=== PATIENT | female | born 1995 | race Caucasian/White ===

== ENCOUNTER → 2017-11-17 15:32 | Outpatient (CLI) | payer OTHER, SELFPAY ==
[2017-11-24 15:37] LABS: HPV Reflexed? NOT INDICATED
== END ==
PROVIDERS: Visit Provider Nurse Practitioner Women's Health
DX: Z12.4 Encounter for screening for malignant neoplasm of cervix (principal)
CPT/HCPCS: 88175; G0145

== ENCOUNTER → 2018-11-18 | Outpatient (CLI) | payer OTHER, SELFPAY ==
--- NOTE | 2018-11-18 10:30 | SKTAG_PTH ---
PATIENT: CHHAYA KENNEDY LOC: [facility] U#:[id number] AGE/SX: 23/ ROOM: RE11/18/[address]: ALDEN Pastrana : 1995 BED: DIS: 11/18/2018 SPEC #: [id number] RECD: 11/18/18 12:07 STATUS: ALLAN LETHA #: [id number] RODRI: 11/18/18 10:[address]: Sylvia Lorenzo NP DEPT: SURGICAL PATHOLOGY RECD BY: Susi Montoya Tissues: Skin of buttock, NOS Procedures: Surgery Specimen Level IV HEADER OPERATION: Skin tag removal PRE-OP DIAGNOSIS: 6 mm skin tag TISSUE SUBMITTED: 6 mm skin tag inner right buttocks near rectum MICROSCOPIC DIAGNOSIS Skin tag, inner right buttock, biopsy: Fibroepithelial polyp, mildly inflamed. AM:bety 11/19/18 MICROSCOPIC DESCRIPTION Slides are reviewed. GROSS DESCRIPTION Received is one container labeled with the patient's name and not further designated. The specimen consists of a polypoid piece of li-white skin measuring 0.6 x 0.5 x 0.3 cm. The specimen is inked, bisected and submitted entirely in one cassette. / SJ:bety 11/18/18 TC:5 CPT: 88567
[2018-11-18 10:45] VITALS: BMI 34.7
== END | disposition home or self-care (01) ==
LOC: LABSPEC 14:48
PROVIDERS: Referring Provider Nurse Practitioner Women's Health; Visit Provider Nurse Practitioner Women's Health
DX: L91.8 Other hypertrophic disorders of the skin (principal)
CPT/HCPCS: 88304; 88305

== ENCOUNTER → 2019-10-28 13:21 | Outpatient (CLI) | payer OTHER, SELFPAY ==
[2019-10-12 14:08] VITALS: BMI 34.7
--- NOTE | 2019-10-28 13:26 | US_ITS ---
STUDY: ULTRASOUND BREAST - LEFT REASON FOR EXAM: Female, 24 years old. Lump TECHNIQUE: Axial and longitudinal images of the LEFT breast were performed with a high resolution ultrasound transducer. # OF IMAGES: 43 COMPARISON: None. FINDINGS: LEFT Breast: Sonographic evaluation of the left breast shows normal dense fibroglandular tissue. There is no suspicious shadowing solid lesion, architectural distortion, or shadowing calcifications. There are mildly dilated ducts in the region of concern that are clearly benign. US/Breast Complete Unilateral IMPRESSION: No suspicious sonographic abnormality, mildly dilated retroareolar ducts in the area of concern. No specific follow-up is needed ASSESSMENT CATEGORY: BIRADS Category 1: Negative. A letter regarding these results will be sent to the patient by the facility within 30 days. Electronically Signed: James Lee MD at 14:12 EDT , Service support ,
== END ==
PROVIDERS: Referring Provider Nurse Practitioner Women's Health; Visit Provider Nurse Practitioner Women's Health
DX: N63.20 Unspecified lump in the left breast, unspecified quadrant (principal)
CPT/HCPCS: 76641

== ENCOUNTER → 2020-09-12 07:51 | Outpatient (CLI) | payer OTHER, SELFPAY ==
[2020-08-29 14:07] VITALS: BMI 34.7
[2020-09-12 08:34] LABS: Hemoglobin A1c 4.8 % (3.8-5.6)
[2020-09-12 08:49] LABS: Prolactin 8.5 ng/mL
== END ==
LOC: PAVLAB 07:56
PROVIDERS: Referring Provider Nurse Practitioner Women's Health; Visit Provider Nurse Practitioner Women's Health
DX: N92.6 Irregular menstruation, unspecified (principal); N97.0 Female infertility associated with anovulation
CPT/HCPCS: 36415; 82627; 83036; 84146; 84402; 82626

== ENCOUNTER → 2020-09-30 12:55 | Outpatient (CLI) | payer OTHER, SELFPAY ==
[2020-08-29 14:07] VITALS: BMI 34.7
== END ==
LOC: LAB 13:03
PROVIDERS: Visit Provider Nurse Practitioner Women's Health
DX: N92.6 Irregular menstruation, unspecified (principal)
CPT/HCPCS: 36415; 84144

== ENCOUNTER → 2021-02-18 16:34 | Outpatient (CLI) | payer OTHER, SELFPAY ==
[2021-02-18 17:26] LABS: Absolute Lymphocyte Count 3.26 X10^3/uL (0.83-4.51); Absolute Neutrophil Count 7.1 X10^3/uL (2.0-7.7); Basophil# 0.03 X10^3/uL; Basophil% 0.3 % (0-1); Eosinophil# 0.12 X10^3/uL; Eosinophils% 1.1 % (0-5); Hematocrit 38.9 % (37-47); Hemoglobin 13.2 g/dL (12.0-15.0); Lymphocyte # 3.26 X10^3/ul (0.83-4.51); Lymphocyte % 29.2 % (19-41); Mean Corp Hgb Conc 33.9 g/dL (32-36); Mean Corpuscular Hgb 30.8 pg (27.0-32.0); Mean Corpuscular Volume 90.7 fL (81-99); Monocyte# 0.63 X10^3/uL; Monocyte% 5.6 % (0-10); NRBC Flagged by Analyzer 0 % (0-5); Neutrophil # 7.08 X10^3/uL (2.7-7.7); Neutrophil % 63.4 % (47-70); Platelet Count 247 K/mm3 (150-450); RBC Distribution Width CV 14.1 % (11.6-14.6); RBC Distribution Width SD 46.7 fl (35.1-43.9); Red Blood Count 4.29 M/mm3 (4.2-5.4); White Blood Count 11.2 K/mm3 (4.4-11.0)
[2021-02-18 18:03] LABS: Amphetamine Urine VISTA NEGATIVE (<1000 ng/mL); Barbiturate Urine VISTA NEGATIVE (< 200 ng/mL); Benzodiazepine Urine VISTA NEGATIVE (< 200 ng/mL); Cocaine Urine VISTA NEGATIVE (< 300 ng/mL); Ecstacy Urine VISTA NEGATIVE (< 500 ng/mL); Methadone Urine VISTA NEGATIVE (< 300 ng/mL); PCP Urine VISTA NEGATIVE (< 25 ng/mL); THC Urine VISTA NEGATIVE (< 50 ng/mL); Vista UDS pH Range 6
[2021-02-19 12:03] LABS: HIV - WCH Non-Reactive (Nonreactive); Hepatitis B Surface Antigen Non-Reactive (Nonreactive); Hepatitis C Antibody Non-Reactive (Nonreactive); Progesterone Level 8.75 ng/mL (See Comment); Rubella IgG Reactive (Nonreactive); Syphilis Antibodies Non-reactive
[2021-02-27 15:35] LABS: HPV APTIMA, High Risk Negative; HPV Reflexed? YES, CHARGE PATIENT
== END ==
PROVIDERS: Referring Provider Obstetrics & Gynecology; Visit Provider Obstetrics & Gynecology
DX: Z34.90 Encounter for supervision of normal pregnancy, unspecified, unspecified trimester (principal)
CPT/HCPCS: 36415; 80307; 84144; 84702; 85025; 86703; 86762; 86780; 86803; 86850; 86870; 86900; 86901; 87086; 87340; 87624; 88175; G0145

== ENCOUNTER → 2021-02-20 10:37 | Outpatient (CLI) | payer OTHER, SELFPAY ==
--- NOTE | 2021-02-20 10:49 | US_ITS ---
STUDY: FIRST TRIMESTER OBSTETRICAL ULTRASOUND REASON FOR EXAM: Female, 25 years old threatened LMP: 12/20/2020 TECHNIQUE: Transvaginal TECHNICAL QUALITY: Adequate. PRIOR ULTRASOUND: None. FINDINGS: There is visualization of a single gestational sac in a normal intrauterine position. The mean sac diameter (MSD) measures 2.35 cm, indicating an estimated gestational age (EGA) of 7 weeks, 2 days. The gestational sac shape is teardrop in appearance. There is no demonstrated yolk sac. The placenta is non-visualized. There is no demonstrated embryo ( pole). The estimated gestation age (EGA) by LMP is 8 weeks, 6 days. The estimated date of delivery (PRASHANT) by LMP is 09/26/2021. The estimated gestation age (EGA) by US is 7 weeks, 2 days. The estimated date of delivery (PRASHANT) by US is 10/07/2021. The uterus measures 9.4 cm x 6.2 cm by 4.7 cm. There is evidence of a 1.7 cm x 1.7 cm x 1.5 cm uterine fibroid. The cervix is closed. The right ovary measures 4.7 cm x 2.3 cm x 2.6 cm. There is no right ovarian cyst. There is no visualized right adnexal mass or complex lesion. The left ovary measures 4.1 cm x 2.8 cm x 2.7 cm. There is no left ovarian cyst. There is no visualized left adnexal mass or complex lesion. There is no fluid in the cul de sac. US/Init OB < 14Wks US IMPRESSION: Teardrop shaped intrauterine gestational sac with a gestational age of 7 weeks and 2 days. No pole or cardiac activity is seen at this time. Electronically Signed: Gaurav Leos MD at 11:47 EDT , Service support ,
== END ==
PROVIDERS: Referring Provider Obstetrics & Gynecology; Visit Provider Obstetrics & Gynecology
DX: O20.0 Threatened abortion (principal); Z3A.00 Weeks of gestation of pregnancy not specified
CPT/HCPCS: 36415; 76801; 84702

== ENCOUNTER 2021-02-21 10:49 | Day surgery (SDC) | payer OTHER, SELFPAY ==
[2021-02-21] VITALS (8 sets, daily range): BP systolic 96–111; BP diastolic 57–82; PULSE 73–92; RESP 16–17; TEMP 36.1–36.9; O2SAT 95–100; BMI 36.2
[2021-02-21] MEDS: Lactated Ringers 1,000 ML 100 ML IV ×2 (12:14→14:05)
[2021-02-21] MEDS: Doxycycline 100 MG CAPSULE PO (12:14)
[2021-02-21 12:40] LABS: Hematocrit 38.1 % (37-47); Hemoglobin 13.2 g/dL (12.0-15.0); Mean Corp Hgb Conc 34.6 g/dL (32-36); Mean Corpuscular Hgb 31.2 pg (27.0-32.0); Mean Corpuscular Volume 90.1 fL (81-99); Mean Platelet Vol. 10.9 fl (6.2-12.0); Platelet Count 222 K/mm3 (150-450); RBC Distribution Width CV 14.1 % (11.6-14.6); RBC Distribution Width SD 45.8 fl (35.1-43.9); Red Blood Count 4.23 M/mm3 (4.2-5.4); White Blood Count 8.6 K/mm3 (4.4-11.0)
--- NOTE | 2021-02-21 13:05 | HP.PCM_ITS ---
History and Physical Date of Admission: 02/21/21 Vital Signs 02/20/21 12:13 Weight: 199 lb BP 90/60 Intake Visit Reasons: possible SAB u/s at 1100 Allergies sulfamethoxazole [From Bactrim] Allergy (Mild, Verified 02/21/21 11:33) hives trimethoprim [From Bactrim] Allergy (Mild, Verified 02/21/21 11:33) hives [facility] Medical History (Updated 02/21/21 @ 13:[address] Radha Ornelas MD) Acid reflux Anxiety Irregular menses Surgical History H/O oral surgery S/P hernia repair Family History Grandmother Breast cancer Diabetes Social History household members: spouse current occupational status: employed current occupation: [employer] pets and animals: Yes Smoking Status: Never smoker second hand exposure: No alcohol intake: current details: occasionally substance use type: does not use caffeine: Yes what type of physical activity do you participate in: walking, bicycling and yoga frequency: 3-4 times per week seatbelt use: always do you feel safe at home: Yes additional social history: - Bill HPI possible SAB u/s at 1100 Details: CHHAYA KENNEDY is a 25 year old who presents for fu possible miscarriage. us today confirms empty gestational sac with missed ab 7 weeks. she denies any bleeding or crmaping no fevers. Pregancy History 2 Elective abortions Hx Para Spontaneous abortions Hx # Term Pregnancies Ectopic pregnancies Hx # Pregnancies Multiple births # of living children ROS Const Constitutional: Reports as per HPI; Denies fever(s) ENT ENT: Reports system reviewed and no additional complaints, except as documented Cardio Card: Reports system reviewed and no additional complaints, except as documented Resp Resp: Reports system reviewed and no additional complaints, except as documented GI GI: Reports as per HPI : Reports as per HPI Musc Musc: Reports system reviewed and no additional complaints, except as documented Skin Skin/Breast: Reports system reviewed and no additional complaints, except as documented Neuro Neuro: Reports system reviewed and no additional complaints, except as documented Endo Endo: Reports system reviewed and no additional complaints, except as documented Exam Const General: healthy appearing, comfortable and no acute distress [facility] Head: normal to inspection and normocephalic Neck Neck: no lymphadenopathy noted Thyroid: thyroid normal Chest Chest palpation & inspection: normal inspection of the chest Resp Effort & Inspection: normal respiratory effort Cardio Rate: regular rate Rhythm: regular rhythm GI Inspection: normal to inspection Palpation: soft and nontender Skin General: no rashes or lesions noted Neuro General: no focal motor deficits Extrem General: normal to inspection and no pedal edema Psych Appearance: grossly normal Coding Level of Care Code Off vis,est,level 4 Diagnoses Missed O02.1 History of recurrent miscarriages N96 Assessment and Plan Assessment and Plan (1) Missed : Status: Acute Comment: discussed options for medical and surgical management, patient initially chose medical but now requests surgical Medications: New: oxycodone-acetaminophen 5-325 mg (Percocet) 1 TAB PO Q6H 7 days 14 tabs 0RF Plan - Dr. Radha Ornelas MD: After discussing the patient's diagnosis and treatment plan options, patient wishes to proceed with surgical management. I have discussed with the patient the risks, benefits, and alternatives of the procedure which include but are not limited to risks of anesthesia, bleeding, infection, possible damage to bowel, bladder, or surrounding vasculature which could lead to additional surgery to evaluate any complications. Patient agrees to procedure and wishes to proceed. ACOG/uptodate references given for additional information regarding procedure. (2) History of recurrent miscarriages: Status: Acute Comment: tsh hga1c apl panel, apple anora Plan Details UPDATE- I have seen the patient and performed any clinically relevant updates to the history and physical exam. Radha Ornelas MD
--- NOTE | 2021-02-21 13:15 | POC_PTH ---
PATIENT: CHHAYA KENNEDY LOC: [facility] U#:[id number] AGE/SX: 25/F ROOM: RE02/21/[address]: Dr. Radha Ornelas MD : 1995 BED: DIS: 02/21/2021 SPEC #: [id number] RECD: 02/21/21 13:50 STATUS: ALLAN RETi #: [id number] RODRI: 02/21/21 13:[address]: Radha Ornelas DEPT: SURGICAL PATHOLOGY RECD BY: Marla Jensen ENTERED: 02/21/21 14:01 SP TYPE: PROD CONC OTHR DR: CATHERINE Muñoz Tissues: Product of conception, NOS Procedures: Surgery Specimen Level IV HEADER OPERATION: Suction dilation and curettage PRE-OP DIAGNOSIS: Missed , History of recurrent miscarriages TISSUE SUBMITTED: Products of conception (Anora) MICROSCOPIC DIAGNOSIS Products of conception: Decidua, gestational endometrium and immature chorionic villi (products of conception). See comment. AJAY:bety 02/25/2021 COMMENT Results of Anora study will be reported as an addendum. MICROSCOPIC DESCRIPTION Slides are reviewed. GROSS DESCRIPTION Received fresh labeled with the patient's name is a specimen designated products of conception. The specimen consists of multiple pieces of hemorrhage soft tissue measuring in aggregate 7 x 5 x 2 cm. tissue is not identified. A portion of tissue is submitted for Anora studies. [employer] tissue is submitted in three cassettes. / AJAY:bety 02/22/21 TC:5 CPT: 75987
--- NOTE | 2021-02-21 13:34 | OP.PCM_ITS ---
Problems Associated Problem List Diagnoses (1) History of recurrent miscarriages: (2) Missed : Report of Operation Date of Procedure: 02/21/21 Pre-Operative Diagnosis: MISSED Post-Operative Diagnosis: same Surgery/Procedure Performed:: Suction dilation and curettage Description of Surgical Findings:: no FHT present, Nonviable 7 weeks photonics engineering technician: None Type of Anesthesia: Local MAC Special Medications: none Specimen's removed: POC Drains: none Estimated Blood Loss (mL): 50 Fluids Replaced: crystalloid Description of Procedure: Patient was taken to the operating room and placed under MAC local anesthesia. She was prepped and draped in the normal sterile fashion the dorsal lithotomy position. Bladder was drained of clear urine and anterior lip of the cervix was grasped and the uterus sounded to 9cm. Cervix was progressively dilated to allow passage of a [] suction curette. Progressive passes were made removing the retained products of conception without complication. Sharp curettage confirmed complete removal of the retained products. All instruments were removed from the vagina and excellent hemostasis was noted and the patient was taken to recovery in stable condition. Grafts/Implants Used: none Complications none Admit VTE Documentation VTE Present on Admission: No VTE Mechan Device Prophylaxis: SCD's Procedures Urinary/Genital 52xxx-59xxx: 55186 Surg Trtmt missed Ab, 1TM
--- NOTE | 2021-02-21 13:36 | PCM.DC ---
Discharge Instructions Diet Discharge Diet: No restrictions Activity Discharge Activity: Return to Normal Activity, May Shower and May Take a Tub Bath (after 1 week) May resume sexual activity in: 1-2 weeks Weight Bearing Status: Weight bearing as tolerated Lifting Restrictions: none Dressing / Incision Call your doctor if you observe: Fever of 101 or Higher, Using more than 1 pad per hour, Shortness of breath and Uncontrolled pain Follow Up Care Please Follow Up With: Radha Ornelas MD When: Call [phone] to schedule appointment. Test Results: Test results from this visit will be discussed in further detail at your follow-up appointment, if applicable. Discharge Plan Admission Primary Reason for Your Visit: d and c Attending Provider: Radha Ornelas Primary Care Provider: Gricel Silva Discharge Orders/Prescriptions Prescriptions: No Action omeprazole 20 mg capsule,delayed release(DR/EC) 20 mg PO DAILY RF: 0 citalopram [Celexa] 20 mg tablet 20 mg PO DAILY RF: 0 multivitamin Tablet 1 tab PO DAILY RF: 0 folic acid 400 mcg tablet 0.4 mg PO DAILY RF: 0 misoprostol [Cytotec] 200 mcg tablet 800 mcg PO .complex Qty: 8 RF: 1 ibuprofen 600 mg tablet 600 mg PO Q6H PRN (Reason: pain) Qty: 30 RF: 0 oxycodone-acetaminophen [Percocet] 5-325 mg tablet 1 tab PO Q6H 7 Days Qty: 14 RF: 0 Referrals / Follow Up: Gricel Silva PA [Primary Care Provider] - Disposition Disposition (needs filled in before D/C Order can be placed): Home, Self Care
[2021-02-21 13:43] LABS: Hemoglobin A1c 4.8 % (3.8-5.6)
[2021-02-21 13:51] LABS: Thyroid Stim Hormone (TSH) 1.05 uIU/mL (0.358-3.74)
--- NOTE | 2021-02-21 13:56 | PCM.DC ---
Discharge Instructions Diet Discharge Diet: No restrictions Activity May resume sexual activity in: 1-2 weeks Weight Bearing Status: Weight bearing as tolerated Dressing / Incision Call your doctor if you observe: Fever of 101 or Higher, Using more than 1 pad per hour, Shortness of breath and Uncontrolled pain Follow Up Care Please Follow Up With: Radha Ornelas MD Test Results: Test results from this visit will be discussed in further detail at your follow-up appointment, if applicable. Discharge Plan Admission Primary Reason for Your Visit: d and c Attending Provider: Radha Ornelas Primary Care Provider: Gricel Silva Discharge Orders/Prescriptions Prescriptions: No Action omeprazole 20 mg capsule,delayed release(DR/EC) 20 mg PO DAILY RF: 0 citalopram [Celexa] 20 mg tablet 20 mg PO DAILY RF: 0 multivitamin Tablet 1 tab PO DAILY RF: 0 folic acid 400 mcg tablet 0.4 mg PO DAILY RF: 0 misoprostol [Cytotec] 200 mcg tablet 800 mcg PO .complex Qty: 8 RF: 1 ibuprofen 600 mg tablet 600 mg PO Q6H PRN (Reason: pain) Qty: 30 RF: 0 oxycodone-acetaminophen [Percocet] 5-325 mg tablet 1 tab PO Q6H 7 Days Qty: 14 RF: 0 Referrals / Follow Up: Gricel Silva PA [Primary Care Provider] - Disposition Disposition (needs filled in before D/C Order can be placed): Home, Self Care
[2021-02-21] MEDS: Ondansetron 4 MG/2 ML Vial IM (14:01)
[2021-05-01 11:52] LABS: Pathology Specimen OB SEE PATHOLOGY REPORT
== END 2021-02-21 14:55 | disposition home or self-care (01) ==
LOC: SDC 10:50 → AC 10:52
PROVIDERS: PCP Physician Assistant; Referring Provider Obstetrics & Gynecology; Visit Provider Obstetrics & Gynecology
PROC: (CPT 59820; principal; 2021-02-21 13:00)
DX: O02.1 Missed abortion (principal); K21.9 Gastro-esophageal reflux disease without esophagitis; F41.9 Anxiety disorder, unspecified; Z79.899 Other long term (current) drug therapy; N96 Recurrent pregnancy loss; E66.9 Obesity, unspecified; Z68.36 Body mass index [BMI] 36.0-36.9, adult
CPT/HCPCS: 01965; 59820; 83036; 84443; 85027; 86850; 86900; 86901; 87426; 88305; J7120; J2405

== ENCOUNTER → 2021-03-25 10:22 | Outpatient (CLI) | payer OTHER, SELFPAY ==
[2021-03-25 11:17] LABS: hCG Titer Quant., Serum 2 mIU/mL (1-3)
== END ==
PROVIDERS: PCP Physician Assistant; Referring Provider Obstetrics & Gynecology; Visit Provider Obstetrics & Gynecology
DX: N91.2 Amenorrhea, unspecified (principal)
CPT/HCPCS: 36415; 84702

== ENCOUNTER → 2021-10-04 | Outpatient (CLI) | payer BC, SELFPAY ==
[2021-10-04 08:39] LABS: hCG Titer Quant., Serum 9 mIU/mL (1-3)
[2021-10-06 20:07] LABS: Dilute Prothrombin Time (dPT) 34.4 sec (0.0-47.6); Dilute Russell Viper Venom 48.8 sec (0.0-47.0); PTT-LA 34.7 sec (0.0-51.9); Thrombin Time 17.4 sec (0.0-23.0); dPT Confirm Ratio 1.08 Ratio (0.00-1.34)
[2021-10-07 16:28] LABS: Anti-Cardiolipin Ab, IgA, Qn < 9 APL U/mL (0-11); Anti-Cardiolipin Ab, IgG, Qn < 9 GPL U/mL (0-14); Anti-Cardiolipin Ab, IgM, Qn 114 MPL U/mL (0-12); Beta-2-Glycoprotein I IgA <9 (0-25); Beta-2-Glycoprotein I IgG <9 (0-20); Beta-2-Glycoprotein I IgM 32 (0-32); Interpretation Comment: (.)
== END | disposition home or self-care (01) ==
LOC: PAVLAB 07:30
PROVIDERS: PCP Physician Assistant; Referring Provider Obstetrics & Gynecology; Visit Provider Obstetrics & Gynecology
DX: N96 Recurrent pregnancy loss (principal); N91.2 Amenorrhea, unspecified
CPT/HCPCS: 36415; 84702; 86146; 86147

== ENCOUNTER → 2021-12-19 | Outpatient (CLI) | payer BC, SELFPAY ==
[2021-12-19 09:02] LABS: hCG Titer Quant., Serum 839 mIU/mL (1-3)
== END | disposition home or self-care (01) ==
LOC: PAVLAB 08:19
PROVIDERS: PCP Physician Assistant; Referring Provider Obstetrics & Gynecology; Visit Provider Obstetrics & Gynecology
DX: O20.0 Threatened abortion (principal)
CPT/HCPCS: 36415; 84702

== ENCOUNTER → 2022-01-16 | Outpatient (CLI) | payer BC, SELFPAY ==
[2022-01-16 13:21] LABS: Amphetamine Urine VISTA NEGATIVE (<1000 ng/mL); Barbiturate Urine VISTA NEGATIVE (< 200 ng/mL); Benzodiazepine Urine VISTA NEGATIVE (< 200 ng/mL); Cocaine Urine VISTA NEGATIVE (< 300 ng/mL); Ecstacy Urine VISTA NEGATIVE (< 500 ng/mL); Methadone Urine VISTA NEGATIVE (< 300 ng/mL); PCP Urine VISTA NEGATIVE (< 25 ng/mL); THC Urine VISTA NEGATIVE (< 50 ng/mL); Vista UDS pH Range 5
[2022-01-17 22:06] LABS: Chlamydia By Nucleic Acid AMP Negative (Negative)
[2022-01-18 07:17] LABS: Gonococcus By Nucleic Acid AMP Negative (Negative)
[2022-01-22 11:33] LABS: HPV Reflexed? NOT INDICATED
== END | disposition home or self-care (01) ==
LOC: LABSPEC 12:20
PROVIDERS: PCP Physician Assistant; Visit Provider Obstetrics & Gynecology
DX: Z34.91 Encounter for supervision of normal pregnancy, unspecified, first trimester (principal)
CPT/HCPCS: 80307; 87086; 87491; 87591; 88175; G0145

== ENCOUNTER → 2022-02-06 | Outpatient (CLI) | payer BC, SELFPAY ==
[2022-02-06 11:02] LABS: Absolute Lymphocyte Count 2.03 X10^3/uL (0.83-4.51); Absolute Neutrophil Count 5.3 X10^3/uL (2.0-7.7); Basophil# 0.02 X10^3/uL; Basophil% 0.3 % (0-1); Eosinophil# 0.08 X10^3/uL; Hematocrit 32.5 % (37-47); Hemoglobin 11.3 g/dL (12.0-15.0); Lymphocyte # 2.03 X10^3/ul (0.83-4.51); Lymphocyte % 25.9 % (19-41); Mean Corp Hgb Conc 34.8 g/dL (32-36); Mean Corpuscular Hgb 31.8 pg (27.0-32.0); Mean Corpuscular Volume 91.5 fL (81-99); Mean Platelet Vol. 10.5 fl (6.2-12.0); Monocyte# 0.39 X10^3/uL; NRBC Flagged by Analyzer 0 % (0-5); Neutrophil # 5.29 X10^3/uL (2.7-7.7); Neutrophil % 67.3 % (47-70); Platelet Count 165 K/mm3 (150-450); RBC Distribution Width CV 15.4 % (11.6-14.6); RBC Distribution Width SD 50.7 fl (35.1-43.9); Red Blood Count 3.55 M/mm3 (4.2-5.4); White Blood Count 7.9 K/mm3 (4.4-11.0)
[2022-02-06 11:25] LABS: Glucose Challenge Gest 1H 50g 195 mg/dL (70-140)
[2022-02-06 11:46] LABS: NATERA MAILED SPECIMEN
[2022-02-06 13:29] LABS: HIV - WCH Non-Reactive (Nonreactive); Hepatitis B Surface Antigen Non-Reactive (Nonreactive); Hepatitis C Antibody Non-Reactive (Nonreactive); Rubella IgG Reactive (Nonreactive); Syphilis Antibodies Non-reactive
== END | disposition home or self-care (01) ==
LOC: PAVLAB 09:40
PROVIDERS: PCP Physician Assistant; Referring Provider Obstetrics & Gynecology; Visit Provider Obstetrics & Gynecology
DX: Z34.91 Encounter for supervision of normal pregnancy, unspecified, first trimester (principal)
CPT/HCPCS: 36415; 82950; 85025; 86703; 86762; 86780; 86803; 86850; 86870; 86900; 86901; 87340

== ENCOUNTER → 2022-06-04 | Outpatient (CLI) | payer BC, SELFPAY ==
--- NOTE | 2022-06-04 10:23 | US_ITS ---
HISTORY: growth- 28 weeks. TECHNIQUE: Transabdominal pelvic ultrasound was performed. 61 images. COMPARISON: None. FINDINGS: INTRAUTERINE GESTATION(s): Single. PRESENTATION: Breech. HEART MOTION: 144 bpm. PLACENTA: Posterior, grade 0. No placenta previa. CERVIX: 4.3 cm in length and closed. AMNIOTIC FLUID INDEX (FAITH): 17.3 cm. Largest fluid pocket 4.7 cm. biometry- BIPARIETAL DIAMETER: 7.3 cm, corresponding to 29 weeks 3 days. HEAD CIRCUMFERENCE: 27.2 cm, corresponding to 29 weeks 5 days. ABDOMINAL CIRCUMFERENCE: 25 cm, corresponding to 29 weeks 1 day. FEMUR LENGTH: 5.4 cm, corresponding to 28 weeks 4 days. ESTIMATED GESTATIONAL AGE: 29 weeks 2 days. ESTIMATED DUE DATE (PRASHANT): 08/18/2022. ESTIMATED WEIGHT: 1329 g corresponding to 61st percentile. US/OB Limited With Biometrics IMPRESSION: Single living intrauterine currently in breech presentation with an estimated gestational age of 29 weeks 2 days. Electronically Signed: Tosha Horan MD at 8:36 EST ,
== END | disposition home or self-care (01) ==
LOC: OPUS 10:23 → US 10:24
PROVIDERS: PCP Family Medicine Sports Medicine; Referring Provider Nurse Practitioner Women's Health; Visit Provider Nurse Practitioner Women's Health
DX: O09.93 Supervision of high risk pregnancy, unspecified, third trimester (principal); Z3A.29 29 weeks gestation of pregnancy
CPT/HCPCS: 76816

== ENCOUNTER → 2022-07-02 | Outpatient (CLI) | payer BC, SELFPAY ==
--- NOTE | 2022-07-02 12:05 | US_ITS ---
STUDY: SECOND AND THIRD TRIMESTER OBSTETRICAL ULTRASOUND REASON FOR EXAM: Female, 26 years old growth -- 32 Weeks LMP: November 17, 2021. TECHNIQUE: Transabdominal TECHNICAL QUALITY: Adequate. PRIOR ULTRASOUND: Comparison is made with prior study dated June 04, 2022. FINDINGS: There is a single intrauterine fetus. The fetus is in a cephalic presentation. There is demonstrated cardiac activity with a heart rate of 127 bpm. There is a normal amniotic fluid volume. The largest amniotic fluid pocket measures 5.4 cm. The amniotic fluid index (FAITH) is 15 cm. The placenta is fundal in location. There are Grade 1 placental changes. The cervix measures 3.3 cm in length. The adnexal regions are not visualized. BIOMETRY: BPD: 8.34 cm: 33 weeks, 4 days HC: 30.69 cm: 34 weeks, 1 days AC: 29.24 cm: 33 weeks, 2 days FL: 6.27 cm: 32 weeks, 3 days CI: 80% FL/BPD: 75% FL/HC: FL/AC: 21% HC/AC: 1.05 age by current US: 33 weeks, 1 days. PRASHANT by current US: August 19, 2022. Estimated weight: 2134 grams, +/- 320 grams, 63 %. age by prior US: 33 weeks, 2 days. PRASHANT by prior US: August 18, 2022. Age by LMP: 32 weeks, 3 days. PRASHANT by LMP: August 24, 2022. US/OB Limited With Biometrics IMPRESSION: Single live intrauterine gestation with a mean gestational age of 33 weeks and 2 days. The measurements obtained today fall within the normal expected range. Electronically Signed: Gaurav Leos MD at 10:28 EST ,
== END | disposition home or self-care (01) ==
PROVIDERS: PCP Family Medicine Sports Medicine; Visit Provider Nurse Practitioner Women's Health
DX: O09.90 Supervision of high risk pregnancy, unspecified, unspecified trimester (principal)
CPT/HCPCS: 76816

== ENCOUNTER → 2022-07-23 | Outpatient (CLI) | payer BC, SELFPAY | END | disposition home or self-care (01) | LOC: LABSPEC 13:13 | PROVIDERS: PCP Family Medicine Sports Medicine; Visit Provider Nurse Practitioner Women's Health | DX: Z34.90 Encounter for supervision of normal pregnancy, unspecified, unspecified trimester (principal) | CPT/HCPCS: 87081 ==

== ENCOUNTER → 2022-07-30 | Outpatient (CLI) | payer BC, SELFPAY ==
--- NOTE | 2022-07-30 12:13 | US_ITS ---
STUDY: SECOND AND THIRD TRIMESTER OBSTETRICAL ULTRASOUND REASON FOR EXAM: Female, 27 years old . growth. LMP: November 17, 2021. TECHNIQUE: Transabdominal TECHNICAL QUALITY: Adequate. PRIOR ULTRASOUND: Comparison is made with prior study July 02, 2022. FINDINGS: There is a single intrauterine fetus. The fetus is in a cephalic presentation. There is demonstrated cardiac activity with a heart rate of 138 bpm. There is a normal amniotic fluid volume. The largest amniotic fluid pocket measures 3.7 cm. The amniotic fluid index (FAITH) is 13 cm. The placenta is fundal in location. There are Grade 2 placental changes. The cervix was not measured due to the head position. The adnexal regions are not visualized. BIOMETRY: BPD: 9.21 cm: 37 weeks, 3 days HC: 33.46 cm: 38 weeks, 2 days AC: 35.72 cm: 39 weeks, 4 days FL: 6.95 cm: 35 weeks, 5 days CI: 81% FL/BPD: 76% FL/HC: FL/AC: 19% HC/AC: 0.94 age by current US: 37 weeks, 5 days. PRASHANT by current US: August 15, 2022. Estimated weight: 3485 grams, +/- 523 grams, 93 %. age by prior US: 37 weeks, 1 days. PRASHANT by prior US: August 19, 2022. Age by LMP: 36 weeks, 3 days. PRASHANT by LMP: August 24, 2022. US/OB Limited With Biometrics IMPRESSION: Single live uterine gestation with a mean gestational age of 37 weeks and 1 day. The measurements obtained today fall within the normal expected range. Electronically Signed: Gaurav Leos MD at 12:49 EDT ,
== END | disposition home or self-care (01) ==
PROVIDERS: PCP Family Medicine Sports Medicine; Referring Provider Nurse Practitioner Women's Health; Visit Provider Nurse Practitioner Women's Health
DX: L02.91 Cutaneous abscess, unspecified (principal)
CPT/HCPCS: 76816; 87070; 87075; 87077; 87186; 87205

== ENCOUNTER 2022-08-07 15:58 | Outpatient (CLI) | payer BC, SELFPAY ==
--- NOTE | 2022-08-07 16:04 | US_ITS ---
INDICATION: Pre-existing diabetes affecting EXAMINATION: Ultrasound US Biophysical Profile W/O Nonst TECHNIQUE: Transabdominal pelvic ultrasound was performed. COMPARISON: None. LMP: Unknown. Beta-hCG: Unknown. Provided EGA: 37 weeks 4 days FINDINGS: INTRAUTERINE GESTATION(s): Single. HEART MOTION is 140 bpm. AMNIOTIC FLUID INDEX (FAITH): 16.5 cm BIOPHYSICAL PROFILE (BPP): 6/8 -- Breathin/2 -- Movement: 2/2. -- Tone: 2/2. --FAITH: 2/2. PRESENTATION: Cephalic PLACENTA: Posterior. There is no placenta previa or abruption. CERVIX: The cervix is not visualized. US/Biophysical Prof W/O Non Stres IMPRESSION: Single live intrauterine . Biophysical profile score 6/8 due to absence of breathing motions. Electronically Signed: Rashid Jacob MD at 18:16 EDT ,
[2022-08-07 17:09] VITALS: BMI 41.2
--- NOTE | 2022-08-07 17:17 | OB.TRI.PN_ITS ---
Progress Notes Date of Service: 08/07/22 Progress Note: Patient presents for triage evaluation secondary to 6/8 bpp FHT: 140 Moderate variability reactive no decelerations category I tracing Seagraves: no regular Contractions Assessment and plan: abnormal testing but reassuring 8/10 bpp Reactive NST, reassuring maternal and status patient discharged to home to follow- up as scheduled. See problem list details for additional plan information. Charges/Coding Procedures Urinary/Genital 52xxx-59xxx: 54033-60 non-stress test Interp
[2022-08-07 17:21] VITALS: TEMP 36.7
[2022-08-07 17:24] VITALS: BP 105/71; PULSE 95
== END 2022-08-07 18:32 | disposition home or self-care (01) ==
LOC: US 15:59 → WPOUT 17:03 → WP 17:03
PROVIDERS: PCP Family Medicine Sports Medicine; Referring Provider Obstetrics & Gynecology; Visit Provider Obstetrics & Gynecology
DX: O24.32 Unspecified pre-existing diabetes mellitus in childbirth (principal); Z3A.00 Weeks of gestation of pregnancy not specified
CPT/HCPCS: 59025; 59050; 76819

== ENCOUNTER 2022-08-10 18:50 | Inpatient (IN) | payer BC, SELFPAY ==
[2022-08-10] VITALS (9 sets, daily range): BP systolic 118; BP diastolic 72; PULSE 76–95; TEMP 36.8; O2SAT 98–100; BMI 42.0
[2022-08-10] MEDS: Lactated Ringers 1,000 ML 50 ML IV (19:40)
[2022-08-10] MEDS: LACTATED RINGERS 500 ML 999 ML IV (19:45)
[2022-08-10 19:55] LABS: Absolute Lymphocyte Count 2.72 X10^3/uL (0.83-4.51); Absolute Neutrophil Count 7.5 X10^3/uL (2.0-7.7); Basophil# 0.01 X10^3/uL; Basophil% 0.1 % (0-1); Eosinophil# 0.07 X10^3/uL; Eosinophils% 0.6 % (0-5); Hematocrit 35.7 % (37-47); Hemoglobin 11.7 g/dL (12.0-15.0); Lymphocyte # 2.72 X10^3/ul (0.83-4.51); Lymphocyte % 25.1 % (19-41); Mean Corp Hgb Conc 32.8 g/dL (32-36); Mean Corpuscular Hgb 29.7 pg (27.0-32.0); Mean Corpuscular Volume 90.6 fL (81-99); Mean Platelet Vol. 12.2 fl (6.2-12.0); Monocyte# 0.52 X10^3/uL; Monocyte% 4.8 % (0-10); NRBC Flagged by Analyzer 0 % (0-5); Neutrophil # 7.45 X10^3/uL (2.7-7.7); Neutrophil % 68.8 % (47-70); Platelet Count 168 K/mm3 (150-450); RBC Distribution Width CV 16.6 % (11.6-14.6); RBC Distribution Width SD 54.1 fl (35.1-43.9); Red Blood Count 3.94 M/mm3 (4.2-5.4); White Blood Count 10.8 K/mm3 (4.4-11.0)
[2022-08-10 20:11] LABS: Bedside Glucose 99 mg/dL (74-106)
[2022-08-10] MEDS: miSOPROStol 25 MCG TABLET VAGINAL (20:43)
[2022-08-10 21:02] LABS: Syphilis Antibodies Non-reactive
[2022-08-10 21:10] LABS: Bedside Glucose 94 mg/dL (74-106)
[2022-08-10] MEDS: Clindamycin HCl 150 MG Capsule 300 MG PO (22:42)
--- NOTE | 2022-08-10 23:24 | HP.PCM.OB_ITS ---
HPI - General General Date of Admission: 08/10/22 HPI Narrative CHHAYA KENNEDY, is a 27 F who presents for IOL secondary to diabetes which was uncontrolled as evidenced by increased EFW of 4000g at 38 weeks. no vb lof good fm n oregular ctx. Maternal Data Information PRASHANT Calculator Estimated Delivery Date Method Current WG Current Estimate 08/24/22 Manual 38w 0d preivous US Other Estimates 08/12/22 LMP (Certain) 39w 5d PFSH PFSH Medical History (Updated 08/10/22 @ 23:[address] Radha Ornelas MD) Acid reflux Anxiety Anxiety Diabetes mellitus Irregular menses Home Medications citalopram 20 mg tablet (Celexa) 20 mg PO DAILY anxiety 02/02/20 [History Last Taken 08/09/22 1 tab] multivitamin 1 tab PO DAILY 02/02/20 [History Last Taken Unknown] omeprazole 20 mg capsule,delayed release 20 mg PO DAILY 02/02/20 [History Last Taken Unknown] acetaminophen 80 mg chewable tablet PO 01/10/22 [History Last Taken Unknown] aspirin 81 mg chewable tablet 81 mg PO DAILY 02/06/22 [History Last Taken 08/09/22 1 tab] BD Ultra-Fine Linda Pen Needle 32 gauge x 5/32 (pen needle, diabetic) #150 ea 02/10/22 [Rx Last Taken Unknown] blood sugar diagnostic (OneTouch Ultra Test strips) #150 ea 02/28/22 [Rx Last Taken Unknown] heparin (porcine) 5,000 unit/mL (1 mL) injection cartridge 5,000 unit subcut Q12H #50 mL 07/30/22 [Rx Last Taken Unknown] clindamycin HCl 300 mg capsule 300 mg PO Q6H Skin abcess 10 days #40 caps 08/01/22 [Rx Last Taken 08/10/22 300 mg] enoxaparin 40 mg/0.4 mL subcutaneous syringe (Lovenox) 40 mg subcut DAILY dm 08/10/22 [History Last Taken 08/08/22 21:00] insulin aspart (niacinamide)(U-100) 100 unit/mL(3 mL) subcutaneous pen (Fiasp FlexTouch U-100 Insulin) 10 unit subcut TID dm 08/10/22 [History Last Taken 08/10/22] insulin degludec 200 unit/mL (3 mL) subcutaneous pen (Tresiba FlexTouch U-200 insulin) 80 unit subcut DAILY dm 08/10/22 [History Last Taken 08/09/22 21:00] Allergy/AdvReac Type Severity Reaction Status Date / Time sulfamethoxazole Allergy Mild hives Verified 08/10/22 20:16 [From Bactrim] trimethoprim [From Bactrim] Allergy Mild hives Verified 08/10/22 20:16 Family History Grandmother Breast cancer, Onset Age: 50 Maternal and Paternal Diabetes Surgical History (Updated 08/10/22 @ 19:38 by Socorro Akers) H/O oral surgery History of gynecologic surgery S/P hernia repair Social History adopted: No household members: spouse current occupational status: employed 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 pets and animals: Yes (not managing litterbox) pets and animals: cat(s) and dog(s) history of recent travel: No sexually active: Yes Smoking Status: Former smoker second hand exposure: No alcohol intake: former details: occasionally prior to substance use type: does not use caffeine: Yes (occaisionally) what type of physical activity do you participate in: walking and yoga frequency: 3-4 times per week uche/methodist: None seatbelt use: always do you feel safe at home: Yes additional social history: - Vinay History 4 Elective abortions Hx Para 0 Spontaneous abortions 3 Hx # Term Pregnancies Ectopic pregnancies Hx # Pregnancies Multiple births # of living children 0 Visit Details Expected Delivery Route/Plan Labor Preferences- CB/BF classes: enc labor support person: Oswaldo Mclean (sister) labor intervention preferences: unmedicated pain management options preferred: unmedicated cut cord/dad catch: ? has some concerns with medical procedures (fainting) momma would like to cut the cord/help catch. : yes PP control planned: discussed discussed possible routes of delivery and associated risks: [] special requests: [] Plans Covid status: discussed Flu vaccine: given Tdap vaccine: given Rhogam: na LARC form signed: Yes movement and labor precautions reviewed. Problem list reviewed and updated with the most current plan of care details and appropriate orders placed. Relevant counseling for the gestational age provided. Continue routine care and follow up unless otherwise noted in visit notes/problem list details OB Flowsheet Initial Weight: Not Recorded Date -?-?-?-?-?-?-?-?-?-?-?-?- EGA Weight BP Urine Prot -?-?-?-?-?-?-?-?-?-?-?-?- Glucose FHR FuHt Pres Dilation -?-?-?-?-?-?-?-?-?-?-?-?- Effaced St Visit Note 01/16/22 -?-?--?-?-?-?-?-?-?-?-?-?- 8w 4d 208 lb 105/70 -?-?-?-?-?-?-?-?-?-?-?-?- 150 -?-?-?-?-?-?-?-?-?-?-?-?- SM- CRl 2 cm pre vious US showed CRL not cons with LMP prashant 08/24/22 02/06/22 -?-?-?-?-?-?-?-?-?-?-?-?- 11w 4d 208 lb 113/76 -?-?-?-?-?-?-?-?-?-?-?-?- 145 160 -?-?-?-?-?-?-?-?-?-?-?-?- SM- no vb lof cr amping labs today 02/20/22 -?-?-?-?-?-?-?-?-?-?-?-?- 13w 4d 206 lb 118/73 Negative -?-?-?-?-?-?-?-?-?-?-?-?- Negative 150 -?-?-?-?-?-?-?-?-?-?-?-?- JV- pt failed 1 hr gct at 190 in first trimester making her in category of pre-existing DM. status changed on problem list .pt is on insulin. discussion about migraines today. 03/19/22 -?-?-?-?-?-?-?-?-?-?-?-?- 17w 3d 212 lb 8 oz 102/69 Posi tive -?-?-?-?-?-?-?-?-?-?-?-?- Negative 155 -?-?-?-?-?-?-?-?-?-?-?-?- JV- No lof, vagi nal bleeding, or cramping. some fluttering. glucose levels are normal now on insulin. recommend vit b 6 for carpal tunnel discomfort. JV- No lof, vaginal bleeding , or cramping. some fluttering. glucose levels are normal now on insulin. recommend vit b 6 for carpal tunnel discomfort. Flu shot today. 04/16/22 -?-?-?-?-?-?-?-?-?-?-?--?- 21w 3d 209 lb 113/70 Negative -?-?-?-?-?-?-?-?-?-?-?-?- Negative 145 -?-?-?-?-?-?-?-?-?-?-?-?- LC- no lof/vb. + flutters. normal anatomy scan. good glucose control. on insulin and lovenox. 05/14/22 -?-?-?-?-?-?-?-?-?-?-?-?- 25w 3d 213 lb 2 oz 98/66 Nega tive -?-?-?-?-?-?-?-?-?-?-?-?- Negative 146 26 -?-?-?-?-?-?-?-?-?-?-?-?- MH-No Vb, LOF. G ood FM. Larc. Ordered [facility] growth US Q 4 at 28 and need wkly NST at 32:discussed. On insulin and lovenox 06/04/22 -?-?-?-?-?-?-?-?-?-?-?-?- 28w 3d 216 lb 96/68 Negative -?-?-?-?-?-?-?-?-?-?-?-?- Negative 136 29 -?-?-?-?-?-?-?-?-?-?-?-?- MH0No VB, LOF. G ood FM. tdap. Will do 28 wk labs today after growth US. Normal glucose readings 06/20/22 -?-?-?-?-?-?-?-?-?-?-?-?- 30w 5d 221 lb 2 oz 94/59 Nega tive -?-?-?-?-?-?-?-?-?-?-?-?- Negative 140 33 -?-?-?-?-?-?-?-?-?-?-?-?- SM- no vb lof go od fm no regular ctx 07/02/22 -?-?-?-?-?-?-?-?-?-?-?-?- 32w 3d 222 lb 8 oz 113/71 Nega tive -?-?-?-?-?-?-?-?-?-?-?-?- Negative 140 33 -?-?-?-?-?-?-?-?-?-?-?-?- JV- no lof, vagi nal bleeding, or dec fm. NST reactive. plan to start heparin at 36 weeks 07/09/22 -?-?-?-?-?-?-?-?-?-?-?-?- 33w 3d 223 lb 110/64 Negative -?-?-?-?-?-?-?-?-?-?-?-?- Negative 150 -?-?-?-?-?-?-?-?-?-?-?-?- MH-NST only reac tive 07/16/22 -?-?-?-?-?-?-?-?-?-?-?-?- 34w 3d 223 lb 2 oz 88/56 Nega tive -?-?-?-?-?-?-?-?-?-?-?-?- Negative 130 0 -?-?-?-?-?-?-?-?-?-?-?-?- LC- feeling incr eased pressure and cramping, not dilated. reactive NST. LC- feeling increased pressu re and cramping, not dilated. no vb. good fm. reactive NST. 07/23/22 -?-?-?-?-?-?-?-?-?-?-?-?- 35w 3d 225 lb 109/72 Negative -?-?-?-?-?-?-?-?-?-?-?-?- Negative 150 0 -?-?-?-?-?-?-?-?-?-?-?-?- MH-NST reactive. More ctx and pressure. GBS collected 07/30/22 -?-?-?-?-?-?-?-?-?-?-?-?- 36w 3d 225 lb 4 oz 115/74 Nega tive -?-?-?-?-?-?-?-?-?-?-?-?- Negative 150 -?-?-?-?-?-?-?-?-?-?-?-?- JV- pt has a lar ge abscess on chin area. She requests I&D. procedure complete. see procedure note. nst reactive GBS neg. 08/04/22 -?-?-?-?-?-?-?-?-?-?-?-?- 37w 1d 226 lb 8 oz 106/74 Nega tive -?-?-?-?-?-?-?-?-?-?-?-?- Negative 140 -?-?-?-?-?-?-?-?-?-?-?-?- SM- no vb lof go od fm no regular ctx 08/10/22 -?-?-?-?-?-?-?-?-?-?-?-?- 38w 0d 229 lb 9.6 oz 118/72 -?-?-?-?-?-?-?-?-?-?--?-?- -?-?-?-?-?-?-?-?-?-?-?-?- NST FHR Rate Baby A Baseline: 140 Variability:: Moderate Accelerations:: 15 x 15 Decelerations:: None NST Reactive:: Yes FHR Category:: Category I Uterine Activity:: irregular ROS Constitutional Constitutional: Reports systems reviewed and no addt'l complaints, except as documented Eyes Eyes: Denies change in vision ENT HEENT: Reports systems reviewed and no addt'l complaints, except as documented; Denies headache(s) Cardiovascular Cardiovascular: Reports systems reviewed and no addt'l complaints, except as documented; Denies chest pain or dyspnea Respiratory/Chest Respiratory/Chest: Reports systems reviewed and no addt'l complaints, except as documented Gastrointestinal Gastrointestinal: Reports systems reviewed and no addt'l complaints, except as documented; Denies abdominal pain Genitourinary Genitourinary: Reports systems reviewed and no addt'l complaints, except as documented, contractions Details: present (irregular) and movement Details: present; Denies dysuria or genital lesions Musculoskeletal Musculoskeletal: Reports systems reviewed and no addt'l complaints, except as documented Neurologic Neurologic: Reports systems reviewed and no addt'l complaints, except as documented Endocrine Endocrinology: Reports systems reviewed and no addt'l complaints, except as documented Vital Signs Vital Signs Vital Signs: 08/10/22 19:14 08/10/22 19:14 08/10/22 19:27 Temperature Temperature Source Pulse Rate 81 76 Blood Pressure 118/72 BP Systolic 118 BP Diastolic 72 Pulse Ox 08/10/22 19:27 08/10/22 19:32 08/10/22 19:32 Temperature Temperature Source Pulse Rate 91 Blood Pressure BP Systolic BP Diastolic Pulse Ox 99 99 08/10/22 19:31 08/10/22 19:31 08/10/22 19:37 Temperature 98.2 F Temperature Source Temporal Pulse Rate 95 Blood Pressure BP Systolic BP Diastolic Pulse Ox 08/10/22 19:37 08/10/22 19:42 08/10/22 19:42 Temperature Temperature Source Pulse Rate 94 Blood Pressure BP Systolic BP Diastolic Pulse Ox 100 99 08/10/22 19:47 08/10/22 19:47 08/10/22 19:52 Temperature Temperature Source Pulse Rate 88 87 Blood Pressure BP Systolic BP Diastolic Pulse Ox 99 08/10/22 19:52 08/10/22 19:57 08/10/22 19:57 Temperature Temperature Source Pulse Rate 86 Blood Pressure BP Systolic BP Diastolic Pulse Ox 98 99 Weight Weight: 229 lb 9.6 oz Body Mass Index (BMI) 42.0 Physical Exam Const alert, oriented x3, no apparent distress and healthy appearing HEENT normocephalic and moist oral mucous membranes Head and Scalp: atraumatic Neck full ROM, no lymphadenopathy, supple and thyroid normal General: trachea midline Lymph Lymphatic: no lymphadenopathy noted Chest inspection of chest normal Resp normal respiratory effort Cardio regular rate GI normal to inspection, nondistended, normoactive bowel sounds, soft to palpation and non-tender Inspection: gravid external exam normal Manual OB Exam: estimated gestational size appropriate, presentation cephalic, dilated, effaced and station Extremity normal to inspection General Extremity: Negative for edema Skin no rashes or lesions noted Neuro no focal motor deficits and deep tendon reflexes 2+ bilaterally Motor Exam: strength 5/5 throughout and clonus absent Psych mental status grossly normal Labs Labs Labs: Blood Type A POSITIVE Antibody Screen POSITIVE Hct 35.7 % (37-47) L Hgb 11.7 g/dL (12.0-15.0) L Obstetrics US Syphilis Total Ab Non-reactive Rubella IgG Antibody Reactive (Nonreactive) Hep Bs Antigen Non-Reactive (Nonreactive) Chlamydia DNA (IRASEMA) Negative (Negative) Neisseria gonorrhoeae DNA (IRASEMA) Negative (Negative) HIV 1&2 Antibody Non-Reactive (Nonreactive) Glucose 1 Hr 50 gm 195 mg/dL (70-140) H Miscellaneous Test Assessment & Plan (1) Low grade squamous intraepithelial lesion (LGSIL): COMMENT: 01/2022 nl. rpt 1 year (2) APL (antiphospholipid syndrome): COMMENT: Positive APL on 02/21/21-repeat 3 months called 10/01/21 with pos test, Lovenox ordered. 6/3 +APL next 81mg asa and 40mg lovenox, Pt started lovenox and asa 81mg 12/15/21. (3) : QUALIFIERS: Weeks of gestation: 37 weeks Qualified Code(s): Z3A.37 - 37 weeks gestation of COMMENT: Neg GBS NIPT low risk, carrier neg. . nl anatomy (4) Supervision of high risk , antepartum: COMMENT: [id number], PRASHANT 08/12/22, Spouse Bill (5) Pre-existing diabetes mellitus affecting in first trimester, antepartum: COMMENT: growth scan q4 28 NST/BPP at 32 weeks normal. will be repeated on the . (6) Uncontrolled diabetes mellitus: COMMENT: EFW 4000g at 38 weeks plan IOL then, on insulin. discussed risks of shoulder dystocia. declined primary cs (7) Encounter for induction of labor: PLAN: Plan Patient presents IOL, plan management for with cytotec and then plan pitocin/AROM. Pain management: plans epidural. GBS negative. Management of any complications: BS routine during labor. I have reviewed the [facility] and made any clinically relevant updates.
[2022-08-11] VITALS (46 sets, daily range): BP systolic 100–205; BP diastolic 55–88; PULSE 57–100; TEMP 36.2–36.9; O2SAT 88–100
[2022-08-11 01:10] LABS: Bedside Glucose 71 mg/dL (74-106)
[2022-08-11] MEDS: miSOPROStol 50 MCG TABLET VAGINAL (01:28)
[2022-08-11] MEDS: Acetaminophen 500 MG Tablet PO (03:01)
[2022-08-11 04:56] LABS: Bedside Glucose 73 mg/dL (74-106)
[2022-08-11] MEDS: Clindamycin HCl 150 MG Capsule 300 MG PO ×3 (07:24→21:04)
[2022-08-11] MEDS: LACTATED RINGERS 500 ML 999 ML IV (08:50)
[2022-08-11 09:05] LABS: Bedside Glucose 68 mg/dL (74-106)
[2022-08-11] MEDS: fentaNYL-bupivacaine (epidural) 100 ML BAG EPIDURAL ×4 (09:41→21:00)
[2022-08-11] MEDS: Oxytocin 15 Units/NS 250ml 15 UNITS/250 ML IV.SOLN 2 UNITS IV (09:57)
[2022-08-11 11:35] LABS: Bedside Glucose 85 mg/dL (74-106)
[2022-08-11] MEDS: Lactated Ringers 1,000 ML 200 ML IV ×3 (11:49→23:11)
[2022-08-11 14:05] LABS: Bedside Glucose 61 mg/dL (74-106)
[2022-08-11 14:05] LABS: Bedside Glucose 83 mg/dL (74-106)
[2022-08-11] MEDS: Ondansetron 4 MG/2 ML Vial IV (15:09)
[2022-08-11 15:15] LABS: Bedside Glucose 70 mg/dL (74-106)
[2022-08-11] MEDS: 0.9% Normal Saline Single 100 ML IV.SOLN. INTRA-UTER (15:22)
--- NOTE | 2022-08-11 18:04 | PCM.PN.OB ---
Subjective Subjective comfortable with epidural Objective Data Objective Data Vital Signs: Vital Signs Temp Pulse BP Pulse Ox 97.2 F L 57 L 205/88 H 100 08/11/22 17:58 08/11/22 17:59 08/11/22 16:24 08/11/22 17:59 Weight: 229 lb 9.6 oz Body Mass Index (BMI) 42.0 Intake & Output: Intake and Output for Last 24 Hours 08/09/22 08/10/22 08/11/22 23:59 23:59 23:59 Intake Total 3833.86 / 3833.86 Output Total 800 / 800 Balance 3033.86 / 3033.86 Lab / Micro Data Attestation: I reviewed the patient's lab results. Result Diagrams: 08/10/22 19:45 Labs: Laboratory Results - last 24 hr 08/10/22 19:28: POC Glucose 99 08/10/22 19:45: WBC 10.8, RBC 3.94 L, Hgb 11.7 L, Hct 35.7 L, MCV 90.6, MCH 29.7, MCHC 32.8, RDW Std Deviation 54.1 H, RDW Coeff of [place] 16.6 H, Plt Count 168, MPV 12.2 H, Immature Gran % (Auto) 0.600, Neut % (Auto) 68.8, Lymph % (Auto) 25.1, [place] % (Auto) 4.8, Eos % (Auto) 0.6, Baso % (Auto) 0.1, Absolute Neuts (auto) 7.5, Absolute Lymphs (auto) 2.72, Nucleated RBC % 0 08/10/22 19:45: Blood Type A POSITIVE, Antibody Screen TNP, Antibody Identification TNP 08/10/22 19:45: Syphilis Total Ab Non-reactive 08/10/22 19:45: Antibody Screen NEGATIVE 08/10/22 20:37: POC Glucose 94 08/11/22 00:48: POC Glucose 71 L 08/11/22 04:35: POC Glucose 73 L 08/11/22 08:42: POC Glucose 68 L 08/11/22 09:30: POC Glucose 85 08/11/22 12:49: POC Glucose 61 L 08/11/22 13:34: POC Glucose 83 08/11/22 14:53: POC Glucose 70 L NST FHR Rate Baby A Baseline: 120 Variability:: Moderate Accelerations:: 15 x 15 Decelerations:: None NST Reactive:: Yes FHR Category:: Category I Uterine Activity:: q2-3 minutes [id number] Assessment & Plan (1) APL (antiphospholipid syndrome): COMMENT: Positive APL on 02/21/21-repeat 3 months called 10/01/21 with pos test, Lovenox ordered. 6/3 +APL next 81mg asa and 40mg lovenox, Pt started lovenox and asa 81mg 12/15/21. (2) : QUALIFIERS: Weeks of gestation: 37 weeks Qualified Code(s): Z3A.37 - 37 weeks gestation of COMMENT: Neg GBS NIPT low risk, carrier neg. . nl anatomy (3) Supervision of high risk , antepartum: COMMENT: [id number], PRASHANT 08/12/22, Spouse Vinay (4) Pre-existing diabetes mellitus affecting in first trimester, antepartum: COMMENT: growth scan q4 28 NST/BPP at 32 weeks normal. will be repeated on the . (5) Uncontrolled diabetes mellitus: COMMENT: EFW 4000g at 38 weeks plan IOL then, on insulin. discussed risks of shoulder dystocia. declined primary cs (6) Encounter for induction of labor: PLAN: Plan at 38weeks IOL for uncontrolled GDM. glucose stable in labor, recently 71. comfortable now with epidural SVE:6/90/-1, side lying releases by this provider. pitocin recently increased to 8mu current tracing: FHT: Moderate variability reactive no decelerations category I tracing [place]: q2-3 minutes Contractions IUPC in place reviewed tracing abnormalities since last note: A/P: at 38 weeks, IOL for uncontrolled GDM. active labor on pitocin continue to increase pitocin to MVU 250 over 30 minute glucose per protocol Dr. Ornelas updated on POC, exam and agrees with above.
[2022-08-11 18:05] LABS: Bedside Glucose 70 mg/dL (74-106)
[2022-08-11 18:05] LABS: Bedside Glucose 62 mg/dL (74-106)
[2022-08-11 18:10] LABS: Bedside Glucose 71 mg/dL (74-106)
[2022-08-11 20:30] LABS: Bedside Glucose 76 mg/dL (74-106)
[2022-08-11 20:30] LABS: Bedside Glucose 58 mg/dL (74-106)
[2022-08-11 21:36] LABS: Bedside Glucose 70 mg/dL (74-106)
--- NOTE | 2022-08-11 21:43 | PN.OBGYN_ITS ---
Subjective Subjective comfortable with epidural Objective Data Objective Data Vital Signs: Vital Signs Temp Pulse BP Pulse Ox 98.4 F 60 103/55 L 100 08/11/22 20:05 08/11/22 20:08 08/11/22 20:08 08/11/22 17:59 Weight: 229 lb 9.6 oz Body Mass Index (BMI) 42.0 Intake & Output: Intake and Output for Last 24 Hours 08/09/22 08/10/22 08/11/22 23:59 23:59 23:59 Intake Total 4039.06 / 4039.06 Output Total 1700 / 1700 Balance 2339.06 / 2339.06 Lab / Micro Data Attestation: I reviewed the patient's lab results. Result Diagrams: 08/10/22 19:45 Labs: Laboratory Results - last 24 hr 08/10/22 19:45: Blood Type A POSITIVE, Antibody Screen TNP, Antibody Identification TNP 08/10/22 19:45: Antibody Screen NEGATIVE 08/11/22 00:48: POC Glucose 71 L 08/11/22 04:35: POC Glucose 73 L 08/11/22 08:42: POC Glucose 68 L 08/11/22 09:30: POC Glucose 85 08/11/22 12:49: POC Glucose 61 L 08/11/22 13:34: POC Glucose 83 08/11/22 14:53: POC Glucose 70 L 08/11/22 16:12: POC Glucose 62 L 08/11/22 16:37: POC Glucose 70 L 08/11/22 17:50: POC Glucose 71 L 08/11/22 19:41: POC Glucose 58 L 08/11/22 20:11: POC Glucose 76 08/11/22 21:07: POC Glucose 70 L NST FHR Rate Baby A Baseline: 130 Variability:: Moderate Accelerations:: 15 x 15 Decelerations:: Early and Variable NST Reactive:: Yes FHR Category:: Category II Assessment & Plan (1) Uncontrolled diabetes mellitus: COMMENT: EFW 4000g at 38 weeks plan IOL then, on insulin. discussed risks of shoulder dystocia. declined primary cs (2) Encounter for induction of labor: (3) : QUALIFIERS: Weeks of gestation: 37 weeks Qualified Code(s): Z3A.37 - 37 weeks gestation of COMMENT: Neg GBS NIPT low risk, carrier neg. 14/14. nl anatomy (4) APL (antiphospholipid syndrome): COMMENT: Positive APL on 02/21/21-repeat 3 months called 10/01/21 with pos test, Lovenox ordered. / +APL next 81mg asa and 40mg lovenox, Pt started lovenox and asa 81mg 12/15/21. PLAN: Plan 27 yo at 38+1 current tracing:cat 2 tracing, variables to 75 with contractions. FHT: Moderate variability reactive [place]:q2-3 minute Contractions on 10u of Pitocin reviewed tracing abnormalities since last note: variables A/P: will start amnioinfusion 400ml bolus followed by 125ml/hr for cat 2 tracing. tracing overall reassuring with moderate variability.
[2022-08-11] MEDS: Amnioinfusion- 0.9% NS 1,000 ML IV.SOLN. 1000 ML INTRA-UTER (21:48)
[2022-08-11 22:46] LABS: Bedside Glucose 72 mg/dL (74-106)
[2022-08-11 23:26] LABS: Bedside Glucose 64 mg/dL (74-106)
[2022-08-12] VITALS (22 sets, daily range): BP systolic 94–137; BP diastolic 56–72; PULSE 60–100; RESP 16–17; TEMP 36–37.3; O2SAT 97–100
[2022-08-12 00:51] LABS: Bedside Glucose 75 mg/dL (74-106)
[2022-08-12] MEDS: LACTATED RINGERS 500 ML 999 ML IV (01:53)
[2022-08-12 02:46] LABS: Bedside Glucose 65 mg/dL (74-106)
[2022-08-12] MEDS: Clindamycin HCl 150 MG Capsule 300 MG PO (02:51)
[2022-08-12] MEDS: fentaNYL-bupivacaine (epidural) 100 ML BAG EPIDURAL (02:52)
[2022-08-12 03:15] LABS: Bedside Glucose 102 mg/dL (74-106)
[2022-08-12] MEDS: Lactated Ringers 1,000 ML 200 ML IV (03:52)
[2022-08-12] MEDS: Amnioinfusion- 0.9% NS 1,000 ML IV.SOLN. 1000 ML INTRA-UTER (03:57)
[2022-08-12 04:21] LABS: Bedside Glucose 92 mg/dL (74-106)
[2022-08-12 06:01] LABS: Bedside Glucose 78 mg/dL (74-106)
[2022-08-12] MEDS: Oxytocin 15 Units/NS 250ml 15 UNITS/250 ML IV.SOLN 83 UNITS IV (06:46)
--- NOTE | 2022-08-12 06:53 | EX.PCM.OBRPT ---
Assessment & Plan (1) APL (antiphospholipid syndrome): COMMENT: Positive APL on 02/21/21-repeat 3 months called 10/01/21 with pos test, Lovenox ordered. 6/3 +APL next 81mg asa and 40mg lovenox, Pt started lovenox and asa 81mg 12/15/21. (2) : QUALIFIERS: Weeks of gestation: 37 weeks Qualified Code(s): Z3A.37 - 37 weeks gestation of COMMENT: Neg GBS NIPT low risk, carrier neg. . nl anatomy (3) Supervision of high risk , antepartum: COMMENT: [id number], PRASHANT 08/12/22, Spouse Bill (4) Pre-existing diabetes mellitus affecting in first trimester, antepartum: COMMENT: growth scan q4 28 NST/BPP at 32 weeks normal. will be repeated on the . (5) Migraines: QUALIFIERS: Migraine type: without aura Status migrainosus presence: with status migrainosus Intractability: intractable Qualified Code(s): G43.011 - Migraine without aura, intractable, with status migrainosus COMMENT: no aura. has appt with neurologist (6) Abscess of skin: COMMENT: MRSA (7) Uncontrolled diabetes mellitus: COMMENT: EFW 4000g at 38 weeks plan IOL then, on insulin. discussed risks of shoulder dystocia. declined primary cs (8) Encounter for induction of labor: Maternal Data Information PRASHANT Calculator Estimated Delivery Date Method Current WG Current Estimate 08/24/22 Manual 38w 2d preivous US Other Estimates 08/12/22 LMP (Certain) 40w 0d Final PRASHANT: 08/24/22 Final PRASHANT Source: US <20 weeks Gestational age: 38 WEEKS 2 DAYS Doctor Who Attended Delivery: Liana Augustin Vaginal Delivery Operative Information Date of Procedure: 08/12/22 Pre-Operative Diagnosis: @ 38 weeks 2 days, LGA, uncontrolled diabetes on insulin and estimated weight 4000g Post-Operative Diagnosis: @ 38 weeks 2 days, LGA, uncontrolled diabetes on insulin and estimated weight 4000g all just order it for machine whitener #1: Suzie Katz Type of Anesthesia: Epidural Drain: Garcia to straight drain Estimated Blood Loss: 100cc Time of Delivery: 06:28 Findings Description of Procedure: Patient began pushing and delivered the head in the [facility]OG[facility] presentation with CNM, Suzie Katz. It was immediately determined that there was a shoulder dystocia and with supervision, extra OB personnel was called, the national service officer was called to the room, and within 10 seconds Mcrobert's position was performed at the same time oxygen was given to the mother. A loose nuchal cord ?1 was identified and easily reduced over the infant's head. At 1 minute and 15 seconds Herrera and Wood screw maneuvers were performed without success. At 1 minute and 35 seconds, suprapubic pressure was performed by the nurse. The CNM then attempted the posterior arm extraction and asked for physician assistance. At 1 minute and 35 seconds, I inserted my hand to the level of the infants hand posterior in the maternal vaginal canal. The arm was identified and swept across the infant's chest. The axilla was also used as leverage and with a hooked finger the shoulder delivered posteriorly followed by the swept arm followed by the rest of the infant and the infant at 1 minute and 40 seconds and was placed on the maternal abdomen. Delayed cord clamping was employed for approximately 60 seconds. Cord was clamped and cut and gentle traction was applied to the cord and the placenta delivered spontaneously immediately following it was noted to be intact with three-vessel cord. The perineum and vagina were inspected and noted to have a 1st degree laceration, repaired with a 3-0 vicryl.. EBL was 100 cc. Patient and tolerated delivery well. Presentation: Vertex Amniotic Membrane Rupture Type: Spontaneous Amniotic Fluid Description: Clear Placental Delivery Description: Spontaneous Placenta Disposition: [facility] Cord Vessel Description: 3 Vessels Cord Entanglement: Around neck x 1, loose Nuchal Cord Compression: Without compression Cord Gases: ABG and VBG Infant A Gender: Male (1 minute): 6 (5 minute): 8 Delayed Cord Clamping: No Post Vaginal Delivery Medications Given After Delivery: IV Pitocin Episiotomy Description: None Laceration: 1st degree Complication Complications: None Admit VTE Documentation VTE Present on Admission: Yes VTE Mechan Device Prophylaxis: SCD's VTE Pharm Prophylaxis Ordered: Yes Multi Select Codes Urinary/Genital Urinary/Genital CPT Codes: 00458 Vaginal Delivery global pkg and Other Procedure See Report (shoulder dystocia delivery )
[2022-08-12 08:36] LABS: Bedside Glucose 79 mg/dL (74-106)
[2022-08-12] MEDS: Insulin Lispro 100 UNIT/ML INSULN.PEN SC ×3 (08:51→20:29)
[2022-08-12] MEDS: Naproxen 500 MG Tablet PO ×2 (09:17→20:04)
[2022-08-12] MEDS: 0.9% Saline Lock 10 ML Syringe IV (09:30)
[2022-08-12 11:30] LABS: Bedside Glucose 162 mg/dL (74-106)
[2022-08-12 16:51] LABS: Bedside Glucose 96 mg/dL (74-106)
[2022-08-12] MEDS: Enoxaparin 40 MG/0.4 ML Syringe SC (18:27)
[2022-08-12] MEDS: Insulin NPH Human 100 UNITS/ML PEN 40 UNITS SC (20:30)
[2022-08-12] MEDS: Citalopram 20 MG Tablet PO (21:53)
[2022-08-12 23:31] LABS: Bedside Glucose 126 mg/dL (74-106)
[2022-08-13] MEDS: Acetaminophen 500 MG Tablet 1000 MG PO ×3 (02:31→15:12)
[2022-08-13] MEDS: Naproxen 500 MG Tablet PO ×2 (04:02→11:36)
[2022-08-13 04:05] VITALS: BP 101/60; PULSE 82; RESP 18; TEMP 36.4
--- NOTE | 2022-08-13 07:42 | NURSING ---
AM fasting blood sugar was 65, gave patient orange juice and did report with Claudette HALEY who was notified and will recheck blood sugar.
[2022-08-13 07:48] VITALS: BP 105/54; PULSE 66; RESP 16; TEMP 36.2; O2SAT 98
--- NOTE | 2022-08-13 07:58 | PN.OBGYN_ITS ---
Subjective Subjective Patient doing well without complaints. Tolerating PO. Ambulating and voiding without difficulty. Feeding well. Denies chest pain, shortness of breath, calf pain/swelling, fevers, chills, lightheadedness. Noted low glucose this AM, OJ given Objective Data Objective Data Vital Signs: Vital Signs Temp Pulse Resp BP Pulse Ox O2 Del Method 97.1 F L 66 16 105/54 L 98 Room Air 08/13/22 07:48 08/13/22 07:48 08/13/22 07:48 08/13/22 07:48 08/13/22 07:48 08/13/22 07:48 Oxygen Delivery Method Room Air Weight: 229 lb 9.6 oz Body Mass Index (BMI) 42.0 Intake & Output: Intake and Output for Last 24 Hours 08/11/22 08/12/22 08/13/22 23:59 23:59 23:59 Intake Total 5082.39 / 5082.39 2330.40 / 2330.40 Output Total 2300 / 2300 2600 / 2600 Balance 2782.39 / 2782.39 -269.60 / -269.60 Lab / Micro Data Result Diagrams: 08/10/22 19:45 Labs: Laboratory Results - last 24 hr 08/12/22 08:11: POC Glucose 79 08/12/22 11:08: POC Glucose 162 H 08/12/22 16:28: POC Glucose 96 08/12/22 23:07: POC Glucose 126 H Physical Exam Const alert and oriented x3 HEENT normocephalic Eyes PERRL Neck full ROM Resp normal respiratory effort GI soft to palpation GI Narrative: FF below U Assessment & Plan (1) Spontaneous vaginal delivery: COMMENT: 08/12/22 Boy LC/JV shoulder dystocia (2) Pre-existing diabetes mellitus affecting in first trimester, an tepartum: COMMENT: growth scan q4 28 NST/BPP at 32 weeks normal. will be repeated on the . PLAN: Plan s/p PPD # 1 1. routine post delivery care 2. bottle feeding- support given 3. rh positive 4. rubella immune 5. Hold AM lispro, will recheck after OJ and call Dr Toro for further management. 6. Plans home today
[2022-08-13 08:25] LABS: Bedside Glucose 65 mg/dL (74-106)
[2022-08-13 08:30] LABS: Bedside Glucose 85 mg/dL (74-106)
[2022-08-13 12:01] LABS: Bedside Glucose 112 mg/dL (74-106)
[2022-08-13] MEDS: Insulin Lispro 100 UNIT/ML INSULN.PEN SC (12:27)
--- NOTE | 2022-08-13 14:07 | DCINST_ITS ---
Discharge Instructions Diet Discharge Diet: No restrictions Activity Discharge Activity: Return to Normal Activity, May Not Drive (while taking narcotic pain medications.) and May Shower May resume sexual activity in: 4-6 weeks Dressing / Incision Call your doctor if your incision/area has: Continuous Slow Oozing, Sudden Increased Bleeding, Increased Pain/ Swelling, Increased Redness and Foul Smelling Discharge Follow Up Care Please Follow Up With: Gi Toro DO When: Call [phone] to make an appointment with your doctor in 6 weeks. If you had elevated blood pressure or 4th degree laceration, you will need to be seen in 2 weeks. Test Results: Test results from this visit will be discussed in further detail at your follow- up appointment, if applicable. Discharge Plan Admission Admit Date/Time: 08/10/22 18:50 Primary Reason for Your Visit: vaginal delivery Attending Provider: Gi Toro Primary Care Provider: Jackelin Flannery Instructions Patient Instructions: After a Vaginal Discharge Orders/Prescriptions Prescriptions: New naproxen 500 mg tablet 500 mg PO BID PRN (Reason: pain) Qty: 20 0RF Continued omeprazole 20 mg capsule,delayed release(DR/EC) 20 mg PO DAILY citalopram [Celexa] 20 mg tablet 20 mg PO DAILY multivitamin Tablet 1 tab PO DAILY acetaminophen 80 mg tablet,chewable PO enoxaparin [Lovenox] 40 mg/0.4 mL syringe 40 mg subcut DAILY Changed insulin degludec [Tresiba FlexTouch U-200] 200 unit/mL (3 mL) insulin pen 20 unit subcut DAILY 30 Days Qty: 3 0RF Fiasp FlexTouch U-100 Insulin 100 unit/mL (3 mL) insulin pen 5 unit subcut TID Qty: 15 0RF Rx Instructions: 5 units with meals Discontinued aspirin 81 mg tablet,chewable 81 mg PO DAILY heparin (porcine) 5,000 unit/mL (1 mL) cartridge 5,000 unit subcut Q12H Qty: 50 1RF clindamycin HCl 300 mg capsule 300 mg PO Q6H 10 Days Qty: 40 0RF No Action (DME) pen needle, diabetic [BD Ultra-Fine Linda Pen Needle] 32 gauge x 5/32 needle See Rx Instructions .ROUTE .MEDSUPPLY Qty: 150 5RF Rx Instructions: 4 times daily (DME) OneTouch Ultra Test Strip See Rx Instructions .Route Qty: 150 5RF Rx Instructions: 4 times daily Referrals / Follow Up: Jackelin Flannery MD [Primary Care Provider] - Disposition Disposition (needs filled in before D/C Order can be placed): Home, Self Care
[2022-08-13 15:16] VITALS: BP 110/64; PULSE 65; RESP 16; TEMP 36.4; O2SAT 98
[2022-08-13 15:51] LABS: Bedside Glucose 91 mg/dL (74-106)
== END 2022-08-13 18:18 | disposition home or self-care (01) | DRG 805 ==
PROVIDERS: Obstetrics & Gynecology; Admitting Provider Obstetrics & Gynecology; PCP Family Medicine Sports Medicine; Referring Provider Obstetrics & Gynecology; Visit Provider Obstetrics & Gynecology
DX: O76 Abnormality in fetal heart rate and rhythm complicating labor and delivery (principal); Z37.0 Single live birth; O24.12 Pre-existing type 2 diabetes mellitus, in childbirth; D68.61 Antiphospholipid syndrome; O99.12 Other diseases of the blood and blood-forming organs and certain disorders involving the immune mechanism complicating childbirth; O99.354 Diseases of the nervous system complicating childbirth; L02.91 Cutaneous abscess, unspecified; E11.649 Type 2 diabetes mellitus with hypoglycemia without coma; Z79.4 Long term (current) use of insulin; G43.011 Migraine without aura, intractable, with status migrainosus; F41.9 Anxiety disorder, unspecified; O26.23 Pregnancy care for patient with recurrent pregnancy loss, third trimester; O99.72 Diseases of the skin and subcutaneous tissue complicating childbirth; O70.0 First degree perineal laceration during delivery; B95.62 Methicillin resistant Staphylococcus aureus infection as the cause of diseases classified elsewhere; O66.0 Obstructed labor due to shoulder dystocia; O69.81X0 Labor and delivery complicated by cord around neck, without compression, not applicable or unspecified; O99.344 Other mental disorders complicating childbirth; Z3A.38 38 weeks gestation of pregnancy; Z79.01 Long term (current) use of anticoagulants; Z79.82 Long term (current) use of aspirin; Z79.899 Other long term (current) drug therapy; Z87.891 Personal history of nicotine dependence
CPT/HCPCS: 59025; 59050; 82962; 85025; 86780; 86850; 86870; 86900; 86901; 99221; J7030; J7120; A4216; G0378; J2405

== ENCOUNTER 2022-10-22 15:17 | Emergency (ER) | payer BC, SELFPAY ==
[2022-10-22 15:18] VITALS: BP 122/83; PULSE 99; RESP 16; TEMP 36.6; O2SAT 100; BMI 39.1
--- NOTE | 2022-10-22 15:24 | VDLE_ITS ---
Reason For Study: Right leg pain RIGHT GSV is normal. CFV is compressible, spontaneous, phasic, competent and demonstrates normal augmentation. FV is compressible, spontaneous, phasic, competent and demonstrates normal augmentation. POP V is compressible, spontaneous, phasic, competent and demonstrates normal augmentation. T/P Trunk is compressible. PTV is compressible. RT PerV is compressible. Procedure This is a venous duplex using B-mode, color flow and spectral Doppler. Exam performed portable in ED. A preliminary report was called and/or faxed to Dr. Gaytan. VL/Venous Duplex US, Unilateral Interpretation Summary Deep veins of the right lower extremity are patent and compressible segmentally . There is no evidence of right lower extremity deep vein thrombosis. The right great sapheno us vein appears patent and compressible segmentally. Ordering Physician: Efrem Gaytan Referring Physician: Jackelin Flannery Performed By: Cristal Ocampo RVT
--- NOTE | 2022-10-22 15:25 | ED.VIS.LOWEX ---
HPI History of Present Illness Chief Complaint: Lower Extremity Injury Detail of Chief Complaint: Right calf pain Informant: patient Narrative Narrative: Patient presents the emergency department with complaint of right calf pain that she has had for about a week. She denies any injury. 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 Patient has history of antiphospholipid antibody syndrome. Patient recently delivered a baby in August vaginally. She denies recent travel or surgery otherwise. No history of PE or DVT. Patient denies chest pain or shortness of breath. [facility] Medical History Acid reflux Anxiety Anxiety Diabetes mellitus Irregular menses MRSA infection Spontaneous vaginal delivery Home Medications citalopram 20 mg tablet (Celexa) 20 mg PO DAILY anxiety 02/02/20 [History Last Taken 08/09/22 1 tab] multivitamin 1 tab PO DAILY 02/02/20 [History Last Taken Unknown] omeprazole 20 mg capsule,delayed release 20 mg PO DAILY 02/02/20 [History Last Taken Unknown] acetaminophen 80 mg chewable tablet PO 01/10/22 [History Last Taken Unknown] BD Ultra-Fine Linda Pen Needle 32 gauge x 5/32 (pen needle, diabetic) #150 ea 02/10/22 [Rx Last Taken Unknown] blood sugar diagnostic (OneTouch Ultra Test strips) #150 ea 02/28/22 [Rx Last Taken Unknown] enoxaparin 40 mg/0.4 mL subcutaneous syringe (Lovenox) 40 mg subcut DAILY dm 08/10/22 [History Last Taken 08/08/22 21:00] insulin aspart (niacinamide)(U-100) 100 unit/mL(3 mL) subcutaneous pen (Fiasp FlexTouch U-100 Insulin) 5 unit subcut TID dm #15 mL 08/13/22 [Rx Last Taken 08/10/22] insulin degludec 200 unit/mL (3 mL) subcutaneous pen (Tresiba FlexTouch U-200 insulin) 20 unit (0.1 mL) subcut DAILY dm 30 days #3 mL 08/13/22 [Rx Last Taken 08/09/22 21:00] naproxen 500 mg tablet 500 mg PO BID PRN pain #20 tabs 08/13/22 [Rx Last Taken Unknown] norethindrone (contraceptive) 0.35 mg tablet (Ortho Micronor) 0.35 mg PO DAILY #84 tabs 10/20/22 [Rx Last Taken Unknown] Allergy/AdvReac Type Severity Reaction Status Date / Time sulfamethoxazole Allergy Mild hives Verified 10/22/22 15:18 [From Bactrim] trimethoprim [From Bactrim] Allergy Mild hives Verified 10/22/22 15:18 Family History Grandmother Breast cancer, Onset Age: 50 Maternal and Paternal Diabetes Surgical History H/O oral surgery History of gynecologic surgery S/P hernia repair Social History adopted: No household members: spouse current occupational status: employed 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 pets and animals: Yes (not managing litterbox) pets and animals: cat(s) and dog(s) history of recent travel: No sexually active: Yes Smoking Status: Current some day smoker tobacco type: e-cigarettes second hand exposure: No alcohol intake: former details: occasionally prior to substance use type: does not use caffeine: Yes (occaisionally) what type of physical activity do you participate in: walking and yoga frequency: 3-4 times per week uche/sabianist: None seatbelt use: always do you feel safe at home: Yes additional social history: - Bill ROS ROS ED Review of Systems ROS Unobtainable: other Constitutional Constitutional ED: Reports lethargy; Denies chills, fever(s), sweats or weight loss Eyes Eyes: Denies blurry vision, change in vision or diplopia ENT ENT ED: Denies rhinorrhea or sore throat Cardiovascular Cardiovascular: Denies chest pain, orthopnea or racing heartbeat Respiratory/Chest Respiratory/Chest: Denies cough, dyspnea, dyspnea on exertion, orthopnea or sputum Gastrointestinal Gastrointestinal: Denies abdominal pain, diarrhea, nausea or vomiting Genitourinary Genitourinary ED: Denies dysuria, hematuria or urinary frequency Musculoskeletal Musculoskeletal: Denies arthralgias, back pain, myalgias or neck pain Integumentary Reports other Details: Right calf pain ; Denies abscess, Abrasions or rash Neurologic Neurologic: Denies headache(s) or weakness Psychiatric Psychiatric: Denies anxiety, depression or suicidal thoughts Endocrine Endocrinology: Denies polydipsia, polyphagia or polyuria Hematologic/Lymphatic Hematologic/Lymphatic: Denies easy bleeding, easy bruising or lymphadenopathy Allergic/Immunologic Allergic/Immunologic ED: Denies mouth swelling, tongue swelling or urticaria EXAM Physical Exam Const Vital Signs: 10/22/22 15:18 Temperature 98 F Temperature Source Temporal Pulse Rate 99 Respiratory Rate 16 Blood Pressure 122/83 H Blood Pressure Mean 96 Pulse Ox 100 Oxygen Delivery Method Room Air Positive well nourished and well developed General Appearance ED: well developed and NAD HEENT Reports TM's clear and moist mucous membranes normocephalic and atraumatic; Negative for trauma or tenderness Tympanic Membrane ED: Yes TM's clear Eyes PERRL and EOMs intact bilaterally General Eye ED: Negative for pale conjunctiva or scleral icterus Neck no lymphadenopathy, supple and no JVD General: Negative for tenderness Chest Wall inspection of chest normal and palpation of chest normal Chest: Negative for tenderness Resp normal respiratory effort and clear to auscultation bilaterally Effort and Inspection: Negative for respiratory distress or pain with movement Auscultation: Negative for rhonchi, wheezes or diminished lung sounds Cardio regular rate, regular rhythm, S1 normal heart sound, S2 normal heart sound and no murmurs Peripheral Pulses: pulses 2+ throughout GI normal to inspection, nondistended, normoactive bowel sounds, soft to palpation, non-tender, non-distended and no masses Back/Spine no CVA tenderness and no thoracic nor lumbar tenderness Extremity normal to inspection Extremity Narrative: Right leg-patient has minimal discomfort over the posterior calf on the right. No ropes or cords palpated. Negative Homans' sign. No significant edema or erythema noted. No cellulitic changes. She is neurovascular intact. General Extremety ED: Negative for edema General Extremity: Negative for edema Neuro oriented x3, CN's II-XII intact bilaterally, no sensory deficits noted and gait normal Sensorium / Orientation: awake, alert, oriented to person, oriented to place and oriented to time Motor Exam: strength 5/5 throughout and strength abnormal Psych mental status grossly normal Skin no rashes or lesions noted and no wounds MDM MDM MDM Narrative Medical decision making narrative: Patient presents to the emergency department with complaint of right calf pain that she has had for about a week. Pain is atraumatic. She does have blood clotting disorder history and she has concern for DVT. In the differential would be DVT versus muscle strain. Patient had a venous Doppler of the right lower extremity that was negative for DVT. This point she is advised to use ibuprofen or Tylenol for discomfort. She is to follow-up with her primary care physician as needed. Discharge Plan Triage Chief Complaint: Lower Extremity Injury ED Provider: Efrem Gaytan Dx/Rx/DC Orders Clinical Impression: Right calf pain Instructions: ED Pain, Acute, Uncertain Cause Prescriptions: No Action omeprazole 20 mg capsule,delayed release(DR/EC) 20 mg PO DAILY citalopram [Celexa] 20 mg tablet 20 mg PO DAILY multivitamin Tablet 1 tab PO DAILY acetaminophen 80 mg tablet,chewable PO (DME) pen needle, diabetic [BD Ultra-Fine Linda Pen Needle] 32 gauge x 5/32 needle See Rx Instructions .ROUTE .MEDSUPPLY Qty: 150 5RF Rx Instructions: 4 times daily norethindrone (contraceptive) [Ortho Micronor] 0.35 mg tablet 0.35 mg PO DAILY Qty: 84 3RF enoxaparin [Lovenox] 40 mg/0.4 mL syringe 40 mg subcut DAILY naproxen 500 mg tablet 500 mg PO BID PRN (Reason: pain) Qty: 20 0RF insulin degludec [Tresiba FlexTouch U-200] 200 unit/mL (3 mL) insulin pen 20 unit subcut DAILY 30 Days Qty: 3 0RF Fiasp FlexTouch U-100 Insulin 100 unit/mL (3 mL) insulin pen 5 unit subcut TID Qty: 15 0RF Rx Instructions: 5 units with meals (DME) OneTouch Ultra Test Strip See Rx Instructions .Route Qty: 150 5RF Rx Instructions: 4 times daily Primary Care Provider: Jackelin Flannery Referrals: Jackelin Flannery MD [Primary Care Provider] - As Needed Disposition Disposition: Home, Self Care
== END 2022-10-22 16:02 | disposition home or self-care (01) ==
PROVIDERS: Emergency Provider Emergency Medicine; PCP Family Medicine Sports Medicine; Visit Provider Emergency Medicine
DX: M79.661 Pain in right lower leg (principal)
CPT/HCPCS: 93971; 99282

== ENCOUNTER → 2023-12-09 | Outpatient (CLI) | payer BC, SELFPAY ==
[2023-12-16 10:35] LABS: HPV Reflexed? NOT INDICATED
== END | disposition home or self-care (01) ==
LOC: LABSPEC 13:09
PROVIDERS: PCP Family Medicine Sports Medicine; Referring Provider Nurse Practitioner Women's Health; Visit Provider Nurse Practitioner Women's Health
DX: Z12.4 Encounter for screening for malignant neoplasm of cervix (principal)
CPT/HCPCS: 88175; G0145